=== PATIENT | female | born 1965 | race Caucasian/White ===

== ENCOUNTER 2022-02-13 17:39 | Emergency (ER) | payer SELFPAY ==
[~2022-02-13] VITALS: Ht 160 cm; Wt 75.0 kg
[2022-02-13 22:07] LABS: BASOPHILS % 0.3 % (0.0-2.0); EOSINOPHILS % 0.3 % (0.0-5.0); HEMATOCRIT. 34.2 % (36.0-48.0); HEMOGLOBIN. 11.2 g/dL (12.0-16.0); LYMPHOCYTES % 18.3 % (20.0-50.0); MEAN CORPUSCULAR VOLUME 76.4 fL (81.0-99.0); MEAN PLATELET VOLUME 8.3 fl (7.4-10.4); MONOCYTES % 7.3 % (2.0-8.0); NEUTROPHILS % 73.8 % (40.0-76.0); PLATELET 235 x1000/uL (130-400); RED BLOOD CELL COUNT 4.48 mill/uL (4.2-5.4); RED CELL DISTRIBUTION WIDTH 16.3 % (11.6-14.6)
[2022-02-13 22:16] LABS: CHLORIDE 107 mEq/L (98-107)
[2022-02-13 22:23] LABS: ETHANOL BLOOD < 10 mg/dL
[2022-02-13 22:54] LABS: HCG SCREEN NEGATIVE
[2022-02-13] MEDS ORDERED: SODIUM CHLORIDE 0.9% 1,000 ML IV ONE (23:15)
[2022-02-13] MEDS ORDERED: ONDANSETRON HCL 4MG/2ML INJ IV ONE (23:15)
[2022-02-14 00:30] LABS: *AMPHETAMINES SCREEN URINE NEGATIVE (NEGATIVE); *BARBITURATES SCREEN URINE NEGATIVE (NEGATIVE); *BENZODIAZEPINES SCREEN URINE NEGATIVE (NEGATIVE); *COCAINE SCREEN URINE NEGATIVE (NEGATIVE); CANNABINOID URINE SCREEN NEGATIVE (NEGATIVE); METHADONE URINE SCREEN NEGATIVE (NEGATIVE); OPIATES URINE SCREEN NEGATIVE (NEGATIVE); PHENCYCLIDINE URINE SCREEN NEGATIVE (NEGATIVE)
[2022-02-14 00:38] LABS: CLARITY URINE CLEAR (CLEAR); COLOR URINE YELLOW (YELLOW); KETONES URINE NEGATIVE (NEGATIVE); PROTEIN URINE NEGATIVE (NEGATIVE)
[2022-02-14 00:39] LABS: LEUKOCYTE ESTERASE URINE NEGATIVE (NEGATIVE); NITRITE URINE NEGATIVE (NEGATIVE); OCCULT BLOOD URINE NEGATIVE (NEGATIVE); UROBILINOGEN URINE 0.2 E.U./dL (0.2-1.0)
[2022-02-14] MEDS ORDERED: IOHEXOL-300 100 ML BOTTLE ONE (00:56)
[2022-02-14] MEDS ORDERED: IMOD MT (01:46)
[2022-02-14] MEDS ORDERED: ACET-2708 MT (01:46)
[2022-02-14] MEDS ORDERED: PROT40 MT (01:46)
[2022-02-14] MEDS ORDERED: ONDA4TAB50 MT (01:46)
[2022-02-14 02:30] VITALS: BP 111/65
== END 2022-02-14 02:34 | disposition home or self-care (01) ==
LOC: ER 18:05
DX: A08.4 Viral intestinal infection, unspecified (principal); R55 Syncope and collapse
CPT/HCPCS: 36415; 74177; 80053; 80305; 80320; 81003; 83690; 84703; 85025; 93005; 96361; 96374; 99285; J2405; J7030; Q9967; G0480

== ENCOUNTER 2022-02-19 12:31 | Emergency (ER) | payer SELFPAY ==
[~2022-02-19] VITALS: Ht 157.5 cm; Wt 69.0 kg
[~2022-02-19 12:31] MED LIST: ACET-2708 MT; IMOD MT; ONDA4TAB50 MT; PROT40 MT
[2022-02-19] MEDS ORDERED: SODIUM CHLORIDE 0.9% 1,000 ML IV ONE (16:45)
[2022-02-19 17:34] LABS: CHLORIDE 105 mEq/L (98-107)
[2022-02-19 17:41] LABS: BASOPHILS % 0.6 % (0.0-2.0); EOSINOPHILS % 3.3 % (0.0-5.0); HEMATOCRIT. 38.1 % (36.0-48.0); HEMOGLOBIN. 12.2 g/dL (12.0-16.0); LYMPHOCYTES % 35.9 % (20.0-50.0); MEAN CORPUSCULAR HEMOGLOBIN 24.6 pg (28.0-32.0); MEAN CORPUSCULAR VOLUME 77.1 fL (81.0-99.0); MEAN PLATELET VOLUME 8.4 fl (7.4-10.4); MONOCYTES % 8.5 % (2.0-8.0); NEUTROPHILS % 51.7 % (40.0-76.0); PLATELET 244 x1000/uL (130-400); RED BLOOD CELL COUNT 4.94 mill/uL (4.2-5.4); RED CELL DISTRIBUTION WIDTH 16.3 % (11.6-14.6)
[2022-02-19 21:51] VITALS: BP 124/64
== END 2022-02-19 21:50 | disposition home or self-care (01) ==
LOC: ER 12:50
DX: R53.1 Weakness (principal); R53.83 Other fatigue
CPT/HCPCS: 36415; 80053; 83605; 83690; 85025; 87426; 93005; 96360; 99283; C9803; J7030